=== PATIENT | female | born 1950 | race Caucasian/White ===

== ENCOUNTER 2024-10-22 19:52 | Observation (INO) | payer MEDICARE, MEDICAID, SELFPAY ==
[2024-10-22] VITALS (7 sets, daily range): BP systolic 116–146; BP diastolic 65–91; PULSE 92–116; RESP 12–26; TEMP 36.4–37; O2SAT 95–97; BMI 29.0
--- NOTE | 2024-10-22 20:10 | HMH.EDGENADL ---
Discharge Plan Disposition Patient Disposition: Admitted Condition: Good Clinical Impressions Clinical Impression: Acute UTI, CATHY (acute kidney injury), Episode of unresponsiveness, Heat exposure Discharge ED Provider: Cristine Irene General Adult HPI <MARIA DOLORES Maher - Last Filed: 10/22/24 21:41> General Chief complaint: Weakness Stated complaint: found unconsious, poss heat stroke Time Seen by Provider: 10/22/24 20:10 History of Present Illness HPI narrative: Patient presents after being found down. Patient's last known well was around 130 this afternoon. Patient's son called and could not get her and went in to check on her in person and she was found in the floor of her single wide trailer hot and unconscious. Patient has no recollection of the events. Patient is a somewhat difficult historian but is oriented to person place and time currently. She does not recall any adverse events today can tell me that she went to see the eye doctor tell me that her sides cut her grass and that 1 son brought her lunch but has no recollection of what may have precipitated this event. Currently she denies chest pain shortness of breath fever chills hemoptysis hematochezia melena focal neurologic changes. Related Data Allergies Allergy/AdvReac Type Severity Reaction Status Date / Time No Known Drug Allergies - Allergy Unknown NA Uncoded 04/19/17 14:07 Nkda PFS <MARIA DOLORES Maher - Last Filed: 10/22/24 21:41> [facility] Disclaimer: The information contained in this section may have been updated after the patient was seen, as this information can be updated by other users. Social History (Updated 10/22/24 @ 21:41 by MARIA DOLORES Maher) Smoking Status: Never smoker alcohol intake: never current occupational status: retired Travel in the last 8 weeks?: None Have you lived/traveled outside [place] in past 30 days?: No Contact w/someone who lives/traveled outside US past 30 days?: No Exposure to someone with infectious disease in past 14 days?: No Do you have a fever (greater than 100.4 F or 38 C)?: No Have you tested positive for COVID-19?: No Exposed to someone with COVID-19 in past 14 days?: No Do you have a sore throat?: No Do you have a cough?: No Do you have any weakness?: No Do you have any diarrhea?: No Are you experiencing any unusual bleeding?: No Do you have any muscle aches/pain?: No Do you have any abdominal pain?: No Are you experiencing loss of taste or smell?: No <MARIA DOLORES Maher - Last Filed: 10/22/24 21:41> ROS Obtained: Yes Systems reviewed as appropriate & no additional complaints except as documented Physical Exam <MARIA DOLORES Maher - Last Filed: 10/22/24 21:41> General General appearance: alert and in no apparent distress Respiratory Respiratory exam: Present normal lung sounds bilaterally Cardiovascular Cardiovascular exam: Present regular rate Neurological Exam Neurological exam: Present alert, oriented X3, CN II-XII intact and normal gait; Absent motor sensory deficit Medical Decision Making <MARIA DOLORES Maher - Last Filed: 10/22/24 21:41> Medical Records Medical records reviewed: Yes I reviewed the patient's medical records. Screening: Per USPSTF and CDC recommendations, given the prevalence of disease in our region, it is our hospital?s policy to screen for HIV and viral Hepatitis for all patients aged 18 and over and those with ongoing risk factors. Jones Inquiry Pt receiving controlled substance: No Vital Signs: 10/22/24 20:07 Temperature 98.6 F Temperature Source Oral Pulse Rate [Right Radial] 116 H Respiratory Rate 16 Blood Pressure [Right Arm] 120/79 Blood Pressure Mean [Right Arm] 92 Blood Pressure Position [Right Arm] Supine 02 Sat by Pulse Oximetry 95 Oxygen Delivery Method Room Air Lab Data Lab results reviewed: Yes I reviewed the patient's lab results. Lab Results 10/22/24 20:21: WBC 15.1 H, RBC 4.32, Hgb 13.4, Hct 39.2, MCV 90.7, MCH 31.0, MCHC 34.2, RDW 13.9, Plt Count 364, MPV 9.8, Neut % (Auto) 82.3 H, Lymph % (Auto) 11.2, [place] % (Auto) 5.5, Eos % (Auto) 0.1, Baso % (Auto) 0.5, Neut # (Auto) 12.4 H, Lymph # (Auto) 1.7, [place] # (Auto) 0.8, Eos # (Auto) 0.0, Baso # (Auto) 0.1, PT 11.6, INR 1.05, Sodium 135 L, Potassium 4.1, Chloride 99, Carbon Dioxide 23, Anion Gap 17.1 H, BUN 21 H, Creatinine 1.70 H, Estimated Creat Clear 37, Estimated GFR 29 L, Est GFR ( Amer) 36 L, Glucose 157 H, Calcium 8.9, Magnesium 1.7, Total Bilirubin 0.6, AST 36, ALT 20, Alkaline Phosphatase 132 H, Total Creatine Kinase 82, Troponin I 0.02, Total Protein 7.9, Albumin 4.2, Globulin 3.7 H, Albumin/Globulin Ratio 1.1, TSH 1.40, Thyroxine (T4) 13.8 H 10/22/24 20:29: VBG pH 7.42 H, VBG pCO2 35.8, VBG pO2 55.7 H, VBG HCO3 22.9 L, VBG Total CO2 24.0, VBG O2 Saturation 89.6 H, VBG Base Excess -1.5, VBG Lactic Acid 2.8 H 10/22/24 20:40: Lactate 2.0 10/22/24 21:58: Urine Color Yellow, Urine Appearance Clear, Urine pH 6.0, Ur Specific Bronson 1.010, Urine Protein Negative, Urine Glucose (UA) Negative, Urine Ketones Negative, Urine Blood Negative, Urine Nitrate Negative, Urine Bilirubin Negative, Urine Urobilinogen 0.2, Ur Leukocyte Esterase 2+ A, Urine WBC Tntc, Ur Squamous Epith Cells 5-10, Urine Bacteria 2+ 10/22/24 20:21 10/22/24 20:21 Orders (Tests/Meds): ED MEDICATIONS Generic Name Dose Route Start Last Admin Trade Name Freq PRN Reason Stop Dose Admin Acetaminophen 650 mg 10/22/24 22:43 Acetaminophen 325mg Tab PO 11/21/24 22:42 Q4HP PRN Fever or Mild Pain (1-3) Sodium Chloride 1,000 mls @ 75 mls/hr 10/22/24 22:45 Sod Chlor 0.9% 1000ml Bag IV 11/21/24 22:44 .[id number] DOTTIE Ceftriaxone Sodium 2 gm/ 100 mls @ 200 mls/hr 10/23/24 22:45 Sodium Chloride IV 11/02/24 22:44 Q24H DOTTIE Sodium Chloride 10 ml 10/22/24 22:43 Sodium Chloride 0.9% 10ml Flush Syringe IV 11/21/24 22:42 NEEDED PRN Maintain IV Site Discontinued Medications Generic Name Dose Route Start Last Admin Trade Name Ryan PRN Reason Stop Dose Admin Sodium Chloride 1,000 mls @ 999 mls/hr 10/22/24 20:22 10/22/24 20:36 Sod Chlor 0.9% 1000ml Bag IV 10/22/24 21:22 999 mls/hr .Q1H1M ONE Administration Ceftriaxone Sodium 2 gm/ 100 mls @ 200 mls/hr 10/22/24 22:32 10/22/24 23:03 Sodium Chloride IV 10/22/24 23:01 200 mls/hr ONCE ONE Administration Iopamidol 80 ml 10/22/24 21:18 10/22/24 21:18 Iopamidol-370 (76%);100ml Bottle IV 10/22/24 21:19 80 ml ONCE ONE Administration Sodium Chloride 50 ml 10/22/24 21:18 10/22/24 21:19 0.9 % Sodium Chloride 50 Ml Vial IV 10/22/24 21:19 50 ml ONCE ONE Administration Sodium Chloride 10 ml 10/22/24 21:18 10/22/24 21:19 Sodium Chloride 0.9% 10ml Syr (Rad Only) IV 10/22/24 21:19 10 ml ONCE ONE Administration ORDERS Category Date Time Status CT angio head Stat Cat Scan 10/22/24 20:[address] angio neck Stat Cat Scan 10/22/24 20:[address] cervical spine wo con Stat Cat Scan 10/22/24 20:[address] head/brain wo con Stat Cat Scan 10/22/24 20:26 Completed Chest XR 2 view (NOT portable) [XR chest 2V] Stat Exams 10/22/24 20:23 Completed CBC w/Auto Diff [Complete Blood Count Auto Diff] Stat Lab 10/22/24 20:21 Completed CK [Creatine Kinase] Stat Lab 10/22/24 20:21 Completed CMP [Comprehensive Metabolic Panel] Stat Lab 10/22/24 20:21 Completed Lactic Acid Stat Lab 10/22/24 20:40 Completed Magnesium Stat Lab 10/22/24 20:21 Completed Prothrombin Time INR Stat Lab 10/22/24 20:21 Completed T4 (Thyroxine) Stat Lab 10/22/24 20:21 Completed TSH [Thyroid Stimulating Hormone] Stat Lab 10/22/24 20:21 Completed Trop I [Troponin I] Stat Lab 10/22/24 20:21 Completed Troponin I Q3H Lab 10/22/24 22:50 Received Troponin I Q3H Lab 10/23/24 02:30 Ordered UA [Urinalysis and Microscopic] Stat Lab 10/22/24 21:58 Completed Blood Culture Stat Micro 10/22/24 22:55 Received Urine Culture Stat Micro 10/22/24 21:58 Received VBG [Venous Blood Gas] Stat RT 10/22/24 20:29 Completed HEART Score History (anamnesis): Slightly suspicious ECG: Non-specific disturbance Age: >65 years Risk factors: Atherosclerosis history Troponin: </= normal limit HEART Score: 5 Medical Decision Narrative: In summary patient is a 74-year-old female who presents to the emergency department for evaluation of syncope and collapse. Patient is currently normotensive tachycardic with sinus tachycardia the bedside monitor rate of 120 upon arrival, and afebrile. Physical exam is remarkable for [place] Coma Score 15 patient is awake alert and oriented currently to place in place and circumstance but she is amnestic of events that occurred this afternoon. Patient has a normal neurologic exam with no deficits. Cranials 2 through 12 intact respiratory exam breath sounds clear to go bilaterally to the bases without adventitious sounds. Abdomen soft nontender no rebound or guarding or rigidity. Patient moves all 4 extremities neurovascularly intact in all 4 extremities is amatory in the ER. She is very diaphoretic and hot to touch and her hair is soaked. She does not however have any evidence of contusions abrasions or bony deformities.. Differential diagnosis includes heat exhaustion versus heat stroke versus stroke versus ACS versus intracranial injury versus C-spine injury etc. Initial workup will be conducted with hematologic labs and CT imaging of her head neck urinalysis twelve-lead EKG. Initial interventions include crystalloid bolus for now. Initial workup ordered and pending at the time of handoff Dr. Irene at 2200 hrs. <Cristine Irene, DO - Last Filed: 10/22/24 23:15> Vital Signs: 10/22/24 20:07 Temperature 98.6 F Temperature Source Oral Pulse Rate [Right Radial] 116 H Respiratory Rate 16 Blood Pressure [Right Arm] 120/79 Blood Pressure Mean [Right Arm] 92 Blood Pressure Position [Right Arm] Supine 02 Sat by Pulse Oximetry 95 Oxygen Delivery Method Room Air Lab Data Lab Results 10/22/24 20:21: WBC 15.1 H, RBC 4.32, Hgb 13.4, Hct 39.2, MCV 90.7, MCH 31.0, MCHC 34.2, RDW 13.9, Plt Count 364, MPV 9.8, Neut % (Auto) 82.3 H, Lymph % (Auto) 11.2, [place] % (Auto) 5.5, Eos % (Auto) 0.1, Baso % (Auto) 0.5, Neut # (Auto) 12.4 H, Lymph # (Auto) 1.7, [place] # (Auto) 0.8, Eos # (Auto) 0.0, Baso # (Auto) 0.1, PT 11.6, INR 1.05, Sodium 135 L, Potassium 4.1, Chloride 99, Carbon Dioxide 23, Anion Gap 17.1 H, BUN 21 H, Creatinine 1.70 H, Estimated Creat Clear 37, Estimated GFR 29 L, Est GFR ( Amer) 36 L, Glucose 157 H, Calcium 8.9, Magnesium 1.7, Total Bilirubin 0.6, AST 36, ALT 20, Alkaline Phosphatase 132 H, Total Creatine Kinase 82, Troponin I 0.02, Total Protein 7.9, Albumin 4.2, Globulin 3.7 H, Albumin/Globulin Ratio 1.1, TSH 1.40, Thyroxine (T4) 13.8 H 10/22/24 20:29: VBG pH 7.42 H, VBG pCO2 35.8, VBG pO2 55.7 H, VBG HCO3 22.9 L, VBG Total CO2 24.0, VBG O2 Saturation 89.6 H, VBG Base Excess -1.5, VBG Lactic Acid 2.8 H 10/22/24 20:40: Lactate 2.0 10/22/24 21:58: Urine Color Yellow, Urine Appearance Clear, Urine pH 6.0, Ur Specific [place]onson 1.010, Urine Protein Negative, Urine Glucose (UA) Negative, Urine Ketones Negative, Urine Blood Negative, Urine Nitrate Negative, Urine Bilirubin Negative, Urine Urobilinogen 0.2, Ur Leukocyte Esterase 2+ A, Urine WBC Tntc, Ur Squamous Epith Cells 5-10, Urine Bacteria 2+ Orders (Tests/Meds): ED MEDICATIONS Generic Name Dose Route Start Last Admin Trade Name Frereza PRN Reason Stop Dose Admin Acetaminophen 650 mg 10/22/24 22:43 Acetaminophen 325mg Tab PO 11/21/24 22:42 Q4HP PRN Fever or Mild Pain (1-3) Sodium Chloride 1,000 mls @ 75 mls/hr 10/22/24 22:45 Sod Chlor 0.9% 1000ml Bag IV 11/21/24 22:44 .[id number] DOTTIE Ceftriaxone Sodium 2 gm/ 100 mls @ 200 mls/hr 10/23/24 22:45 Sodium Chloride IV 11/02/24 22:44 Q24H DOTTIE Sodium Chloride 10 ml 10/22/24 22:43 Sodium Chloride 0.9% 10ml Flush Syringe IV 11/21/24 22:42 NEEDED PRN Maintain IV Site Discontinued Medications Generic Name Dose Route Start Last Admin Trade Name Freq PRN Reason Stop Dose Admin Sodium Chloride 1,000 mls @ 999 mls/hr 10/22/24 20:22 10/22/24 20:36 Sod Chlor 0.9% 1000ml Bag IV 10/22/24 21:22 999 mls/hr .Q1H1M ONE Administration Ceftriaxone Sodium 2 gm/ 100 mls @ 200 mls/hr 10/22/24 22:32 10/22/24 23:03 Sodium Chloride IV 10/22/24 23:01 200 mls/hr ONCE ONE Administration Iopamidol 80 ml 10/22/24 21:18 10/22/24 21:18 Iopamidol-370 (76%);100ml Bottle IV 10/22/24 21:19 80 ml ONCE ONE Administration Sodium Chloride 50 ml 10/22/24 21:18 10/22/24 21:19 0.9 % Sodium Chloride 50 Ml Vial IV 10/22/24 21:19 50 ml ONCE ONE Administration Sodium Chloride 10 ml 10/22/24 21:18 10/22/24 21:19 Sodium Chloride 0.9% 10ml Syr (Rad Only) IV 10/22/24 21:19 10 ml ONCE ONE Administration ORDERS Category Date Time Status CT angio head Stat Cat Scan 10/22/24 20:[address] angio neck Stat Cat Scan 10/22/24 20:[address] cervical spine wo con Stat Cat Scan 10/22/24 20:[address] head/brain wo con Stat Cat Scan 10/22/24 20:26 Completed Chest XR 2 view (NOT portable) [XR chest 2V] Stat Exams 10/22/24 20:23 Completed CBC w/Auto Diff [Complete Blood Count Auto Diff] Stat Lab 10/22/24 20:21 Completed CK [Creatine Kinase] Stat Lab 10/22/24 20:21 Completed CMP [Comprehensive Metabolic Panel] Stat Lab 10/22/24 20:21 Completed Lactic Acid Stat Lab 10/22/24 20:40 Completed Magnesium Stat Lab 10/22/24 20:21 Completed Prothrombin Time INR Stat Lab 10/22/24 20:21 Completed T4 (Thyroxine) Stat Lab 10/22/24 20:21 Completed TSH [Thyroid Stimulating Hormone] Stat Lab 10/22/24 20:21 Completed Trop I [Troponin I] Stat Lab 10/22/24 20:21 Completed Troponin I Q3H Lab 10/22/24 22:50 Received Troponin I Q3H Lab 10/23/24 02:30 Ordered UA [Urinalysis and Microscopic] Stat Lab 10/22/24 21:58 Completed Blood Culture Stat Micro 10/22/24 22:55 Received Urine Culture Stat Micro 10/22/24 21:58 Received VBG [Venous Blood Gas] Stat RT 10/22/24 20:29 Completed ECG Data Tracing #1: I reviewed this ECG and interpreted as documented below: Sinus tachycardia with a ventricular to [address] changes concerning for ischemia. Normal intervals ECG initial impression date: 10/22/24 ECG initial impression time: 20:53 HEART Score HEART Score: 5 Medical Decision Narrative: In summary patient is a 74-year-old female who presents to the emergency department for evaluation of syncope and collapse. Patient is currently normotensive tachycardic with sinus tachycardia the bedside monitor rate of 120 upon arrival, and afebrile. Physical exam is remarkable for [place] Coma Score 15 patient is awake alert and oriented currently to place in place and circumstance but she is amnestic of events that occurred this afternoon. Patient has a normal neurologic exam with no deficits. Cranials 2 through 12 intact respiratory exam breath sounds clear to go bilaterally to the bases without adventitious sounds. Abdomen soft nontender no rebound or guarding or rigidity. Patient moves all 4 extremities neurovascularly intact in all 4 extremities is amatory in the ER. She is very diaphoretic and hot to touch and her hair is soaked. She does not however have any evidence of contusions abrasions or bony deformities.. Differential diagnosis includes heat exhaustion versus heat stroke versus stroke versus ACS versus intracranial injury versus C-spine injury etc. Initial workup will be conducted with hematologic labs and CT imaging of her head neck urinalysis twelve-lead EKG. Initial interventions include crystalloid bolus for now. Initial workup ordered and pending at the time of handoff Dr. Irene at 2200 hrs. DO Teto: I was consulted by the ART, and we discussed the complexity of the problems being addressed. I approved the treatment and management plan for this patient's care in the emergency department, thus performing a substantive portion of the medical decision making. On my assessment of the patient, she is alert and oriented x 4 with reassuring vitals on cardiac telemetry. CT scans not concerning for acute stroke, independent interpretation. I also do not see a C-spine fracture. Please radiology read for final interpretation. They noted an age-indeterminate T-spine fractures but the patient does not complain of pain and has no significant tenderness. I do not feel that these are acute. Labs demonstrate elevated creatinine, unsure what the patient's baseline is. She also has a UTI. For this, administered Rocephin. She also got a bolus of IV fluids. Given found down with heat exposure and UTI as well as her advanced age, I feel she would benefit from admission for further monitoring. The patient was admitted in stable condition after an interactive discussion with the hospitalist. Cristine Irene DO Critical Care <MARIA DOLORES Maher - Last Filed: 10/22/24 21:41> Critical Care Time Critical Care Time: Yes Attestation: On 10/22/24, the high probability of a clinically significant, sudden or life threatening deterioration of the following system(s) required my full and direct attention, intervention and personal management. The time I documented below is in addition to time spent performing reported procedures but includes the following listed in this critical care notation. Total Time Total Critical Care Time: 30
--- OUTSIDE RECORDS SUMMARY | 2024-10-22 20:17 | XMS_ITS ---
Author Organization Unknown TREATMENT PLAN Planned [facility] Start Date Provider Encounter for Check-up [id number] [place] [facility]
--- OUTSIDE RECORDS SUMMARY | 2024-10-22 20:17 | XMS_ITS | Encounter Summary ---
Author Organization [facility] Address [facility] [place] [address] Care Team Providers Care Multimedia Instructional Designer Name Role Phone Unavailable Primary Care Provider Unavailabl e Source Comments This information has been disclosed to you from confidential records protectfrom disclosure by state law. You shall make no further disclosure of thisinformation without the specific, written, and informed release of theindividual to whom it pertains, or as otherwise permitted by law. A generalauthorization for the release of medical or other information is not sufficientfor the purposes of the release of HIV test results or diagnoses. [id number] Health Encounter Details Date Type Department Care Team (Late st Contact Info) Description 03/04/2015 Orders Only [facility] Outreach Lab Test Referral Center [address] [place] [phone] Jess Sanders Infection of skin and subcutaneous tissue (Primary Dx) Social History Tobacco Use Types Packs/Day Years Used Date Smoking Tobacco: Never Assessed Comments Unknown Sex and Gender Information Value Date Recorded Sex Assigned at Not on file Legal Sex Female 11:01 PM EST Gender Identity Not on file Sexual Orientation Not on file documented as of this encounter Plan of Treatment Not on file documented as of this encounter Results * Blood culture-Peripheral (03/04/2015 8:25 PM EST) Culture Result No Growth After 5 Days [facility] Blood specimen (specimen) BLOOD SPECIMEN / Unknown 03/04/2015 8:25 PM EST 03/04/2015 11:10 PM EST us Lakhwinder Chong MD MICROBIOLOGY - GENERAL ORDERABL ES Final Result [facility] [address] [place] [address]. [address] * Blood culture-Peripheral (03/04/2015 8:25 PM EST) Culture Result No Growth After 5 Days [facility] Blood specimen (specimen) BLOOD SPECIMEN / Unknown 03/04/2015 8:25 PM EST 03/04/2015 11:10 PM EST us Lakhwinder Chong MD MICROBIOLOGY - GENERAL ORDERABL ES Final Result [facility] [address] * (ABNORMAL) Basic metabolic panel (03/04/2015 8:25 PM EST) Sodium 128(L) 133 - 146 mmol/L 03/05/2015 1:38 AM EST [facility] Potassium 3.9 3.5 - 5.3 mmol/L 03/05/2015 1:[address] [facility] Chloride 97(L) 98 - 110 mmol/L 03/05/2015 1:38 AM EST [facility] CO2 24 21 - 33 mmol/L 03/05/2015 1:38 AM EST [facility] Anion Gap 7 3 - 16 mmol/L 03/05/2015 1:38 AM EST [facility] BUN 12 7 - 25 mg/dL 03/05/2015 1:38 AM EST [facility] Creatinine 0.67 0.60 - 1.30 mg/dL 03/05/2015 1:38 AM EST [facility] Glucose 104(H) 70 - 100 mg/dL 03/05/2015 1:38 AM EST [facility] Calcium 7.6(L) 8.6 - 10.3 mg/dL 03/05/2015 1:38 AM EST [facility] GFR MDRD Af Amer 107 See note. 03/05/20 15 1:38 AM EST [facility] Comment: GFR is estimated using creatinine, age, gender and race. Patient's values should be interpreted as a trend. Below 90 mL/min/1.73m2, the patient may have renal disease. For additional information: www.kidney.org GFR MDRD Non Af Amer 88 See note. 03/05/2015 1:38 AM EST [facility] Comment: GFR is estimated using creatinine, age, gender and race. Patient's values should be interpreted as a trend. Between 30 and 90 mL/min/1.73m2, clinical correlation is needed. For additional information: www.kidney.org Osmolality, Calculated 266(L) 278 - 305 mOsm/kg 03/05/2015 1:38 AM EST [facility] Plasma specimen (specimen) 03/04/2015 8:25 PM EST 03/04/2015 11:10 PM EST Narrative [facility] - 03/05/2015 1:38 AM EST Has the patient fasted?->No INFO NOT GIVEN us Lakhwinder Chong MD LAB BLOOD ORDERABLES Final Resu lt [facility] [address] [place] [address], [facility] * Differential (03/04/2015 8:25 PM EST) Scan Result Performed 03/05/2015 1:[address] [facility] Neutrophils Relative 56.3 40.0 - 80.0 % 03/05/2015 1:[address] [facility] Lymphocytes Relative 32.2 15.0 - 45.0 % 03/05/2015 1:[address] [facility] Monocytes Relative 7.9 0.0 - 12.0 % 03/05/2015 1:[address] [facility] Eosinophils Relative 2.8 0.0 - 8.0 % 03/05/2015 1:[address] [facility] Basophils Relative 0.8 0.0 - 1.0 % 03/05/2015 1:[address] [facility] Neutrophils Absolute 4,898 1,500 - 7,800 /uL 03/05/2015 1:[address] [facility] Lymphocytes Absolute 2,801 850 - 3,900 /uL 03/05/2015 1:58 AM EST [facility] Monocytes Absolute 687 200 - 950 /uL 03/05/2015 1:[address] [facility] Eosinophils Absolute 244 15 - 500 /uL 03/05/2015 1:58 AM EST [facility] Basophils Absolute 70 0 - 200 /uL 03/05/2015 1:58 AM EST [facility] Whole blood specimen (specimen) 03/04/2015 8:25 PM EST 03/04/2015 11:10 PM EST Narrative [facility] - 03/05/2015 1:58 AM EST Peripheral blood smear was scanned per review criteria approved by the laboratory biomedical engineer. RBC morphology appears normal. Lakhwinder Chong MD LAB BLOOD ORDERABLES Final Resu lt [facility] [address] [place], [place] [address] * (ABNORMAL) CBC (03/04/2015 8:25 PM EST) WBC 8.7 3.8 - 10.8 10E3/uL 03/05/2015 1:18 AM EST [facility] RBC 2.98(L) 3.80 - 5.10 10E6/uL 03/05/2015 1:18 AM EST [facility] Hemoglobin 8.4(L) 11.7 - 15.5 g/dL 03/05/2015 1:18 AM EST [facility] Hematocrit 25.7(L) 35.0 - 45.0 % 03/05/2015 1:[address] [facility] MCV 86.1 80.0 - 100.0 fL 03/05/2015 1:18 AM EST [facility] MCH 28.2 27.0 - 33.0 pg 03/05/2015 1:18 AM EST [facility] MCHC 32.7 32.0 - 36.0 g/dL 03/05/2015 1:[address] [facility] RDW 17.4(H) 11.0 - 15.0 % 03/05/2015 1:[address] [facility] Platelets 520(H) 140 - 400 10E3/uL 03/05/2015 1:[address] [facility] MPV 7.1(L) 7.5 - 11.5 fL 03/05/2015 1:18 AM EST [facility] Whole blood specimen (specimen) 03/04/2015 8:25 PM EST 03/04/2015 11:10 PM EST Lakhwinder Chong MD LAB BLOOD ORDERABLES Final Resu lt [facility] [address] [place] [address], [facility] documented in this encounter Visit Diagnoses Diagnosis Infection of skin and subcutaneous tissue- Primary Unspecified local infection of skin and subcutaneous tissue Infection of skin and subcutaneous tissue Unspecified local infection of skin and subcutaneous tissue documented in this encounter
--- OUTSIDE RECORDS SUMMARY | 2024-10-22 20:17 | XMS_ITS ---
Author Organization [employer] Support Name Relationship Address Phone Thomas Zarco Guarantor [address] [place], [place] [id number] Thomas Zarco Next of Kin [address] [place], [place] [id number] Cady Zarco Next of Kin Unknown Toni Zarco Next of Kin Unknown ZarcoShahzad Personal Relationship Unknown Unalea kennedy Haroldo Sergei Personal Relationship Unknown Unavai brent Mental Status Section Date Assessment Total Score Description 02/11/2015 BIMS 15 cognitively int act PHQ-9 05 mild depression Problems Problem # Description Date of onset Resolved Date Code CodeSystem Concern Status 1 PEDICULOSIS DUE TO PEDICULUS HUMANUS CAPITIS 01/24/[address] active 2 MUSCLE WEAKNESS (GENERALIZED) 01/16/[address] active 3 COLOSTOMY STATUS 01/14/[address] active 4 DISRUPTION OF EXTERNAL OPERATION (SURGICAL) WOUND, NOT ELSEWHERE CLASSIFIED, SEQUELA 01/14/[address] active 5 ESSENTIAL (PRIMARY) HYPERTENSION 01/14/[address] active 6 GASTRO-ESOPHAGEAL REFLUX DISEASE WITHOUT ESOPHAGITIS 01/14/[address] active 7 HYPERLIPIDEMIA, UNSPECIFIED 01/14/[address] active 8 MAJOR DEPRESSIVE DISORDER, RECURRENT, UNSPECIFIED 01/14/[address] active 9 OTHER OSTEOPOROSIS WITHOUT CURRENT PATHOLOGICAL FRACTURE 01/14/[address] active 10 TYPE 2 DIABETES MELLITUS WITHOUT COMPLICATIONS 01/14/[address] active 11 UNSTABLE BURST FRACTURE OF UNSPECIFIED LUMBAR VERTEBRA, SEQUELA 01/14/[address] active Reason for Referral No Reasons for Referral Entered Social History Social History Observation Description Start Date End Date Code Code System Current Smoking Status Tobacco smoking consumption unknown 159831879 SNOMED CT Sex Assigned At Female 1950 69580-8 [facility] Gender Identity Vital Signs Code Code System Vitals Name Values and Units Timing Information 06926-8 [facility] Weight Lfjff=611.4 Units=Lbs
--- OUTSIDE RECORDS SUMMARY | 2024-10-22 20:17 | XMS_ITS | Clinical Summary ---
Author Organization [facility] Address [facility] [place] [address] Care Team Providers Care Medical Instructor Name Role Phone Unavailable Primary Care Provider Unavailabl e Source Comments This information has been disclosed to you from confidential records protectedfrom disclosure by state law. You shall make no further disclosure of thisinformation without the specific, written, and informed release of theindividual to whom it pertains, or as otherwise permitted by law. A generalauthorization for the release of medical or other information is not sufficientfor the purposes of therelease of HIV test results or diagnoses. [id number] Social History Tobacco Use Types Packs/Day Years Used Date Smoking Tobacco: Never Assessed Comments Unknown Sex and Gender Information Value Date Recorded Sex Assigned at Not on file Legal Sex Female 11:01 PM EST Gender Identity Not on file Sexual Orientation Not on file Plan of Treatment Not on file
--- OUTSIDE RECORDS SUMMARY | 2024-10-22 20:17 | XMS_ITS | Clinical Summary ---
Author Organization [facility] Shannon T Address [address] [place] [address] Phone Care Team Providers Care Precision Agronomist Name Role Phone Unavailable Primary Care Provider Unavailabl e Allergies No known active allergies Medications * This document contains information received from the source organization and may not represent a complete record from that organization. No known medications Active Problems Problem Noted Date Diagnosed Date Recurrent depressive disorder, current episode m ild 02/15/2015 DOREEN (generalized anxiety disorder) 02/15/2015 Primary insomnia 02/15/2015 Social History Tobacco Use Types Packs/Day Years Used Date Smoking Tobacco: Never Assessed Comments Unknown Sex and Gender Information Value Date Recorded Sex Assigned at Not on file Legal Sex Female 3:58 PM EDT Gender Identity Not on file Sexual Orientation Not on file Plan of Treatment Health Maintenance Due Date Last Done Comments Wellness Exam Medicare 1953 Hepatitis C Screening 02/20/1968 Cologuard 1995 Colon Cancer Screening 1995 Colonoscopy 1995 FIT 1995 Sigmoidoscopy 1995 Virtual Colonography 1995 Zoster (1 of 2) 02/20/2000 DTaP/TDaP/Td (1 - Tdap) 01/12/2002 01/11/2002 Bone Density Screening 2015 Pneumococcal Vaccine 50+ (3 of 3 - PCV20 or PCV21) 01/27/2022 01/27/2017, 01/14/2015, 01/25/2014, Additional history exists Breast Cancer Screening 09/05/2023 09/04/2021, 10/02 COVID-19 Vaccine ( season) 2024 08/26/2021, 03/11/2021, 07/24/2020, Additional history exists Influenza Vaccine (Season Ended) 2024 01/26/2021, 02/26/2020, 02/02/2019, Additional history exists Hepatitis B Vaccine Aged Out No longe r eligible based on patient's age to complete this topic Meningococcal B Vaccine Aged Out No l onger eligible based on patient's age to complete this topic Procedures Procedure Name Priority Date/Time Associated Diagnosis Comments MM MAMMO DIGITAL GUY SCREEN BILAT Routine 09/04/2021 10:30 AM EDT Encounter for screening mammogram for malignant neoplasm of breast from Last 3 Months or Most Recently Relevant to Health Maintenance Results * MM MAMMO DIGITAL GUY SCREEN BILAT (09/04/2021 10:30 AM EDT) Anatomical Region Laterality Modality Breast Bilateral Mammography 09/09/2021 2:53 PM EDT Impressions 09/09/2021 2:53 PM EDT Negative ([id number]-3) ~ RECOMMENDATION: Routine screening mammogram in 1 year. ~ DISCLAIMER * Any patient with a palpable abnormality, unexplained by breast imaging, should be managed on clinical basis by the attending physician. * Breast imaging has a false negative rate of 15%. * The patient was notified by mail of the results of this examination. *The patient's information was entered into a reminder system with a target due date for the next mammogram, in accordance with the [employer] and the Society of Breast Imaging recommendations. Narrative 09/09/2021 2:53 PM EDT Procedure:MM MAMMO DIGITAL GUY SCREEN BILAT ~ Reason for exam: screening, asymptomatic. Z12.31-Encounter for screening mammogram for malignant neoplasm of oohfmz-NPR-32-CM ~ MM MAMMO DIGITAL GUY SCREEN BILAT Bilateral CC and MLO view(s) were taken. There are scattered fibroglandular densities. Prior study comparison: Compared with prior studies the most recent being outside images from September, No mammographic evidence of malignancy. ~ Procedure Note Minnie Mendoza MD - 09/09/2021 Procedure:MM MAMMO DIGITAL GUY SCREEN BILAT ~ Reason for exam: screening, asymptomatic. Z12.31-Encounter for screening mammogram for malignant neoplasm of sxyuqu-YSJ-90-CM ~ MM MAMMO DIGITAL GUY SCREEN BILAT Bilateral CC and MLO view(s) were taken. There are scattered fibroglandular densities. Prior study comparison: Compared with prior studies the most recentbeing outside images from September, No mammographic evidence of malignancy. ~ IMPRESSION: Negative ([id number]-3) ~ RECOMMENDATION: Routine screening mammogram in 1 year. ~ DISCLAIMER * Any patient with a palpable abnormality, unexplained by breast imaging, should be managed on clinical basis by the attending physician. * Breast imaging has a false negative rate of 15%. * The patient was notified by mail of the results of this examination. *The patient's information was entered into a reminder system with atarget due date for the next mammogram, in accordance with the [employer] and the Society of Breast Imaging recommendations. Matteo Guzman DO IMG MAMMOGRAPHY ORDERABL ES Final Result from Last 3 Months or Most Recently Relevant to Health Maintenance Insurance [employer] [facility] [id number] [facility]
--- NOTE | 2024-10-22 20:22 | CT_ITS ---
PROCEDURE INFORMATION: Exam: CTA Head With Contrast, Arteriography Exam date and time: 10/22/2024 9:09 PM Age: 74 years old Clinical indication: Syncope and collapse TECHNIQUE: Imaging protocol: Computed tomographic angiography of the head with contrast. Exam focused on the arteries. 3D rendering (Not supervised by radiologist): MIP and/or 3D reconstructed images were created by the technologist. Radiation optimization: All CT scans at this facility use at least one of these dose optimization techniques: automated exposure control; mA and/or kV adjustment per patient size (includes targeted exams where dose is matched to clinical indication); or iterative reconstruction. Contrast material: ISO 370; Contrast volume: 80 ml; Contrast route: INTRAVENOUS (IV); COMPARISON: CT HEAD/BRAIN WO CON 10/22/2024 9:05 PM FINDINGS: ANTERIOR CIRCULATION: Right internal carotid artery: Intracranial segment is patent with no significant stenosis. No aneurysm. Right middle cerebral artery: No occlusion or significant stenosis. No aneurysm. Right anterior cerebral artery: No occlusion or significant stenosis. No aneurysm. Left internal carotid artery: Intracranial segment is patent with no significant stenosis. No aneurysm. Left middle cerebral artery: No occlusion or significant stenosis. No aneurysm. Left anterior cerebral artery: No occlusion or significant stenosis. No aneurysm. Hypoplastic A1 segment. POSTERIOR CIRCULATION: Right vertebral artery: No occlusion or significant stenosis. No aneurysm. Left vertebral artery: No occlusion or significant stenosis. No aneurysm. Basilar artery: No occlusion or significant stenosis. No aneurysm. Right posterior cerebral artery: No occlusion or significant stenosis. No aneurysm. Left posterior cerebral artery: No occlusion or significant stenosis. No aneurysm. Brain: No definite mass, mass effect, or midline shift. Cerebral ventricles: No ventriculomegaly. Bones/joints: Unremarkable. No acute fracture. Soft tissues: Unremarkable. IMPRESSION: No large vessel stenosis or occlusion.
--- NOTE | 2024-10-22 20:22 | CT_ITS ---
PROCEDURE INFORMATION: Exam: CTA Neck With Contrast Exam date and time: 10/22/2024 9:09 PM Age: 74 years old Clinical indication: Syncope and collapse TECHNIQUE: Imaging protocol: Computed tomographic angiography of the neck with contrast. Exam focused on the cervical segments of the vasculature. 3D rendering (Not supervised by radiologist): MIP and/or 3D reconstructed images were created by the technologist. Radiation optimization: All CT scans at this facility use at least one of these dose optimization techniques: automated exposure control; mA and/or kV adjustment per patient size (includes targeted exams where dose is matched to clinical indication); or iterative reconstruction. Contrast material: ISO 370; Contrast volume: 80 ml; Contrast route: INTRAVENOUS (IV); COMPARISON: CT CERVICAL SPINE WO CON 10/22/2024 9:07 PM FINDINGS: Right common carotid artery: No stenosis. No dissection or occlusion. Right internal carotid artery: No stenosis of the extracranial segment. No dissection or occlusion. Minimal calcific disease at the origin. Right external carotid artery: No occlusion or stenosis of the origin. Left common carotid artery: No stenosis. No dissection or occlusion. Left internal carotid artery: No stenosis of the extracranial segment. No dissection or occlusion. Minimal calcific disease at the origin. Left external carotid artery: No occlusion or stenosis of the origin. Right vertebral artery: No stenosis. No dissection or occlusion. Left vertebral artery: No stenosis. No dissection or occlusion. Soft tissues: Normal. No significant soft tissue swelling. Bones/joints: No acute fracture. Diffuse moderate to severe degenerative changes of the cervical spine. Moderate wedge compression deformity of T5 which is age indeterminate. IMPRESSION: No stenosis or occlusion. Moderate age-indeterminate T5 wedge compression deformity. REFERENCES: NASCET CRITERIA. The degree of stenosis in the cervical segment of the internal carotid artery is based on NASCET criteria. Normal is no stenosis. Mild is less than 50% stenosis. Moderate is 50-69% stenosis. Severe is 70% to 99% stenosis. Total occlusion is no detectable patent lumen.
--- NOTE | 2024-10-22 20:23 | XR_ITS ---
PROCEDURE INFORMATION: Exam: XR Chest Exam date and time: 10/22/2024 8:49 PM Age: 74 years old Clinical indication: Other: Syncope and collapse TECHNIQUE: Imaging protocol: Radiologic exam of the chest. Views: 2 views. COMPARISON: No relevant prior studies available. FINDINGS: Lungs: Unremarkable. No consolidation. Pleural spaces: Unremarkable. No pleural effusion. No pneumothorax. Heart/Mediastinum: Unremarkable. No cardiomegaly. Vasculature: The thoracic aorta is ectatic. Bones/joints: Moderate wedge compression deformities of T5 and L2. Moderate degenerative changes of the thoracic spine. IMPRESSION: Age-indeterminate moderate compression deformities of T5 and L2.
--- NOTE | 2024-10-22 20:26 | CT_ITS ---
PROCEDURE INFORMATION: Exam: CT Head Without Contrast Exam date and time: 10/22/2024 9:05 PM Age: 74 years old Clinical indication: Altered mental status/memory loss; Additional info: AMS stroke pederson TECHNIQUE: Imaging protocol: Computed tomography of the head without contrast. Radiation optimization: All CT scans at this facility use at least one of these dose optimization techniques: automated exposure control; mA and/or kV adjustment per patient size (includes targeted exams where dose is matched to clinical indication); or iterative reconstruction. COMPARISON: CT HEAD/BRAIN WO CON 10/22/2024 9:05 PM FINDINGS: Brain: There is age related atrophy. No hemorrhage. There is prominent periventricular white matter hypodensity consistent with chronic small vessel disease. No mass effect. Focal prominent encephalomalacia medial left occipital lobe consistent with old infarct. Cerebral ventricles: Ventricular enlargement secondary to parenchymal atrophy. Paranasal sinuses: Visualized sinuses are unremarkable. No fluid levels. Mastoid air cells: Visualized mastoid air cells are well aerated. Orbital cavities: The orbital contents are symmetric and normal. Bones: Unremarkable. No acute fracture. Soft tissues: Unremarkable. There has been bilateral lens extraction. IMPRESSION: No acute intracranial abnormality.
--- NOTE | 2024-10-22 20:27 | CT_ITS ---
PROCEDURE INFORMATION: Exam: CT Cervical Spine Without Contrast Exam date and time: 10/22/2024 9:07 PM Age: 74 years old Clinical indication: Injury or trauma; Other: Found down, age>65 TECHNIQUE: Imaging protocol: Computed tomography of the cervical spine without contrast. Radiation optimization: All CT scans at this facility use at least one of these dose optimization techniques: automated exposure control; mA and/or kV adjustment per patient size (includes targeted exams where dose is matched to clinical indication); or iterative reconstruction. COMPARISON: CT CERVICAL SPINE WO CON 10/22/2024 9:07 PM FINDINGS: Bones: There is subtle superior endplate compression deformity of T1 which is age indeterminate. There is severe degenerative disc disease from C3 through C7. Diffuse moderate facet arthropathy is noted. Normal alignment. No significant disc bulge or herniation. No severe spinal canal stenosis. No severe neural foraminal narrowing. Lungs: Lung apices are normal. Soft tissues: Unremarkable. IMPRESSION: Age-indeterminate subtle superior endplate compression deformity of T1. Further evaluation with MR imaging could be performed to determine the age of the abnormality as clinically indicated.
[2024-10-22] MEDS: 0.9 % SODIUM CHLORIDE 1000ML 1,000 ML 999 ML IV (20:36)
[2024-10-22 20:39] LABS: Basophils # 0.1 K/mm3 (0-0.2); Basophils % 0.5 % (0.1-2.0); Eosinophils % 0.1 % (0.1-12.0); Hematocrit 39.2 % (37.0-47.0); Hemoglobin 13.4 g/dL (12.2-16.2); Immature Granulocytes # 0.06 10^3uL; Immature Granulocytes % 0.4 %; Lymphocytes # 1.7 K/mm3 (0.7-4.5); Lymphocytes % 11.2 % (10-50); Mean Corpuscular HGB Conc 34.2 g/dL (31.8-35.4); Mean Corpuscular Volume 90.7 fl (81-99); Mean Platelet Volume 9.8 fl (7.4-10.4); Monocytes # 0.8 K/mm3 (0.1-1.0); Monocytes % 5.5 % (1.7-9.3); Neutrophils # 12.4 K/mm3 (1.8-7.8); Neutrophils % 82.3 % (37.0-80.0); Nucleated Red Blood Cells # 0 10^3/uL; Nucleated Red Blood Cells % 0 %; Platelet Count 364 K/mm3 (142-424); Red Blood Count 4.32 M/mm3 (4.20-5.40); Red Cell Distribution Width 13.9 % (11.5-17.5); White Blood Count 15.1 K/mm3 (4.8-10.8)
[2024-10-22 20:41] LABS: VBG Base Excess -1.5 mmol/L (-2.4-2.3); VBG HCO3 22.9 mmol/L (23-30); VBG Oxygen Saturation 89.6 % (50-70); VBG PCO2 35.8 mmol/L (35-51); VBG PH 7.42 mmol/L (7.31-7.41); VBG PO2 55.7 mmol/L (28-40)
[2024-10-22 20:42] LABS: Lactate Venous 2.8 mmol/L (0.4-2.0)
[2024-10-22 20:43] LABS: Albumin Level 4.2 g/dl (3.5-5.0); Chloride 99 mmol/L (98-107); Potassium 4.1 mmoL/L (3.5-5.1); Sodium 135 mmol/L (136-145)
[2024-10-22 20:46] LABS: Alanine Aminotransferase 20 U/L (12-78); Albumin/Globulin Ratio 1.1 (1.1-1.8); Alkaline Phosphatase 132 U/L (38-126); Anion Gap 17.1 mEq/L (5-15); Aspartate Amino Transferase 36 U/L (14-36); Bilirubin,Total 0.6 mg/dl (0.2-1.3); Blood Urea Nitrogen 21 mg/dl (7-17); Calcium 8.9 mg/dl (8.4-10.2); Carbon Dioxide 23 mmol/L (22.0-30.0); Creatine Kinase 82 U/L (30-135); Creatinine Clearance Estimated 37 mL/min (50-200); Estimated Glomerular Filt Rate 29 ml/min (>60); GFR (African American) 36 ML/MIN (>60); Globulin 3.7 g/dL (1.3-3.2); Glucose 157 mg/dl (74-100); Total Protein,Serum 7.9 g/dl (6.3-8.2)
[2024-10-22 20:47] LABS: INR 1.05 (0.9-1.1); Magnesium 1.7 mg/dl (1.6-2.3); Prothrombin Time 11.6 seconds (10.1-12.5)
--- NOTE | 2024-10-22 20:50 | ECG_ITS ---
APPROVED REPORT Exam: Resting ECG HR:101 bpm ECG Measurements Heart Rate 101 AXES OK 200 P 14 QRSd 88 QRS -23 QT 355 T 21 QTc 413 Conclusion SINUS TACHYCARDIA MINIMAL VOLTAGE CRITERIA FOR LVH, CONSIDER NORMAL VARIANT [MEETS CRITERIA IN ONE OF: R(aVL), S(V1), R(V5), R(V5/V6)+S(V1)] ANTEROLATERAL MYOCARDIAL INFARCTION , PROBABLY OLD [40+ ms Q WAVE IN I/aVL/V3-V6] ABNORMAL ECG UNCONFIRMED REPORT Electronically signed by : YAEL JENSEN, 10/23/2024 06:35:06
[2024-10-22 20:59] LABS: Troponin I 0.02 ng/ml (0.00-0.034)
[2024-10-22 21:03] LABS: T4 (Thyroxine) 13.8 ug/dl (5.53-11.0)
[2024-10-22] MEDS: IOPAMIDOL-370 (76%);100ML BOTTLE 80 ML IV (21:18)
[2024-10-22] MEDS: 0.9 % SODIUM CHLORIDE 50 ML VIAL IV (21:19)
[2024-10-22] MEDS: SODIUM CHLORIDE 0.9% 10ML SYR (RAD ONLY) 10 ML IV (21:19)
[2024-10-22 22:07] LABS: Microscopic, Urine URINE MICROSCOPIC (MICROSCOPIC)
[2024-10-22 22:10] LABS: Appearance,Urine CLEAR (Clear); Bilirubin,Urine Negative (Negative); Blood, Urine Negative (Negative); Color,Urine YELLOW (Yellow); Glucose,Urine (UA) Negative (Negative); Ketones,Urine Negative (Negative); Leukocyte Esterase,Urine 2+ (Negative); Nitrate,Urine Negative (Negative); Protein,Urine Negative (Negative); Urobilinogen,Urine 0.2 EU/dl (0.2)
[2024-10-22 22:27] LABS: Bacteria,Urine 2+ /lpf; WBC,Urine TNTC #/hpf (0-3)
[2024-10-22] MEDS: CEFTRIAXONE SODIUM 2 GM in 0.9 % SODIUM CHLORIDE 100 ML IV (23:03)
--- NOTE | 2024-10-22 23:04 | PC.NURSE ---
Rocephin initially discontinued due to issue with duplicate order. order was brought back because next order for Rocephin is 10/23.
[2024-10-22 23:35] LABS: Troponin I 0.02 ng/ml (0.00-0.034)
[2024-10-22] MEDS: 0.9 % SODIUM CHLORIDE 1000ML 1,000 ML 75 ML IV (23:53)
--- NOTE | 2024-10-22 23:56 | P.HP_ITS ---
<Statement entered by Alexis Georges MD - 10/24/24 22:22> Evaluated by the patient and agree with plan of care as outlined by the METAL FIN[employer] INSPECTOR. History of Present Illness *Admission Date: 10/22/24 *Reason for visit:: Heat exposure *History of present illness: This is a 74-year-old female with past medical history of heart failure, hypertension, chronic pain who presents emergency department today after being found unresponsive at home. Son at bedside provides collateral and states that he brought her lunch this afternoon for which she did not eat very much. He states that she sits outside a lot under the shade tree and has been doing that all day today. When he left this afternoon she was inside the house. He called her later to check on her and she did not answer the phone. He went into the home to check on her and was found unresponsive laying in her floor with the air conditioner off. He reports that she is cold natured and intermittently will turn the air off in her home. He brought her in by POV and he reports approximately 20 minutes into the car ride with air conditioner she was back to her baseline. Upon arrival to the emergency department she was awake alert and oriented. Normotensive. Normothermic. Workup revealed urinary tract infection with leuk esterase and bacteria. She also noted to have an elevated creatinine of 1.7. Given her heat exposure CATHY and urinary tract infection is felt she would benefit from hospitalization. She is admitted to the hospital service at this time [facility] Disclaimer: The information contained in this section may have been updated after the patient was seen, as this information can be updated by other users. Social History (Updated 10/22/24 @ 21:41 by MARIA DOLORES Maher) Smoking Status: Never smoker alcohol intake: never current occupational status: retired Travel in the last 8 weeks?: None Have you lived/traveled outside [place] in past 30 days?: No Contact w/someone who lives/traveled outside US past 30 days?: No Exposure to someone with infectious disease in past 14 days?: No Do you have a fever (greater than 100.4 F or 38 C)?: No Have you tested positive for COVID-19?: No Exposed to someone with COVID-19 in past 14 days?: No Do you have a sore throat?: No Do you have a cough?: No Do you have any weakness?: No Do you have any diarrhea?: No Are you experiencing any unusual bleeding?: No Do you have any muscle aches/pain?: No Do you have any abdominal pain?: No Are you experiencing loss of taste or smell?: No Review of Systems Review of Systems Review of systems:: pertinent systems reviewed and negative unless documented below Review of systems (narrative): Negative except for HPI. Meds Home Medications and Allergies New Prescriptions to Start Prescriptions: Allergies Allergy/AdvReac Type Severity Reaction Status Date / Time No Known Drug Allergies - Allergy Unknown NA Uncoded 04/19/17 14:07 Nkda Exam Data for Last 24 hours Vital signs and Labs for Last 24 Hours: Temp Pulse Resp BP Pulse Ox O2 Del Method 97.6 F 96 H 16 120/74 96 Room Air 10/22/24 23:20 10/22/24 23:20 10/22/24 23:20 10/22/24 23:20 10/22/24 23:15 10/22/24 23:20 Laboratory Results - last 24 hr 10/22/24 20:21: WBC 15.1 H, RBC 4.32, Hgb 13.4, Hct 39.2, MCV 90.7, MCH 31.0, MCHC 34.2, RDW 13.9, Plt Count 364, MPV 9.8, Neut % (Auto) 82.3 H, Lymph % (Auto) 11.2, [place] % (Auto) 5.5, Eos % (Auto) 0.1, Baso % (Auto) 0.5, Neut # (A uto) 12.4 H, Lymph # (Auto) 1.7, [place] # (Auto) 0.8, Eos # (Auto) 0.0, Baso # (Auto) 0.1, PT 11.6, INR 1.05, Sodium 135 L, Potassium 4.1, Chloride 99, Carbon Dioxide 23, Anion Gap 17.1 H, BUN 21 H, Creatinine 1.70 H, Estimated Creat Clear 37, Estimated GFR 29 L, Est GFR ( Amer) 36 L, Glucose 157 H, Calcium 8.9, Magnesium 1.7, Total Bilirubin 0.6, AST 36, ALT 20, Alkaline Phosphatase 132 H, Total Creatine Kinase 82, Troponin I 0.02, Total Protein 7.9, Albumin 4.2, Globulin 3.7 H, Albumin/Globulin Ratio 1.1, TSH 1.40, Thyroxine (T4) 13.8 H 10/22/24 20:29: VBG pH 7.42 H, VBG pCO2 35.8, VBG pO2 55.7 H, VBG HCO3 22.9 L, VBG Total CO2 24.0, VBG O2 Saturation 89.6 H, VBG Base Excess -1.5, VBG Lactic Acid 2.8 H 10/22/24 20:40: Lactate 2.0 10/22/24 21:58: Urine Color Yellow, Urine Appearance Clear, Urine pH 6.0, Ur Specific [place] 1.010, Urine Protein Negative, Urine Glucose (UA) Negative, Urine Ketones Negative, Urine Blood Negative, Urine Nitrate Negative, Urine Bilirubin Negative, Urine Urobilinogen 0.2, Ur Leukocyte Esterase 2+ A, Urine WBC Tntc, Ur Squamous Epith Cells 5-10, Urine Bacteria 2+ 10/22/24 22:50: Troponin I 0.02 I & O for Last 24 hours: Intake & Output 10/19/24 10/20/24 10/21/24 10/22/24 23:59 23:59 23:59 23:59 Weight 81.647 kg Constitutional Constitutional: no acute distress *Routine HEENT Exam Head: Present normocephalic Eye: Present EOMI and PERRL ENT: Present mucous membranes moist *Routine Neck Exam Neck: Present supple; Absent lymphadenopathy *Routine Respiratory Exam Respiratory: Present CTA bilaterally *Routine Cardiovascular Exam Cardiovascular: Present RRR *Routine Abdominal Exam Abdominal: Present soft and normoactive bowel sounds; Absent tenderness *Routine Rectal Exam Rectal:: deferred *Routine Genitalia Exam Genitalia:: deferred *Routine Extremities Exam Extremities: Absent cyanosis, clubbing or edema *Routine Skin Exam Skin: Present warm; Absent rash *Routine Neurological Exam Neurological: Present alert and oriented X3 Assessment and Plan *Assessment and plan (1) Heat exposure: Status: Acute Category: Medical Code(s): T67.9XXA - Effect of heat and light, unspecified, initial encounter (2) CATHY (acute kidney injury): Status: Acute Category: Medical Code(s): N17.9 - Acute kidney failure, unspecified (3) Acute UTI: Status: Acute Category: Medical Code(s): N39.0 - Urinary tract infection, site not specified Plan #Heat exposure #Transient alteration in awareness Found down by family at home after air conditioner being turned off in the home. Upon arrival to the emergency department awake alert and oriented. States that she just got too hot. CK negative. Monitor neurostatus #CATHY Creatinine 1.7. No baseline for comparison. Patient does take Lasix and spironolactone at home likely secondary to some element of heart failure Hydrate judiciously given that she is on diuretics at baseline Monitor respiratory status #Acute cystitis Urine with leuk esterase, TNTC white cells +2 bacteria Follow-up urine culture Continue Rocephin #Heart failure, unspecified Patient on spironolactone and Lasix at home with likely heart failure diagnosis No prior history for confirmation. Patient is unaware of why she is exactly on diuretics. #Hypertension Patient appears to be on Cardizem with no AC usage. Patient does not have knowledge of atrial fibrillation so medication used for hypertension Home medications will need to be completely reconciled for restart.
[2024-10-23] VITALS: BP 126/69; PULSE 77; PULSE 90; RESP 16; TEMP 36.7; O2SAT 98
--- NOTE | 2024-10-23 00:16 | PC.NURSE ---
med rec done per patient confirmation. patient took a bath upon arrival. IS education provided, patient verbalized understanding. SCDs in place. PW on to monitor I&O tonight, will ambulated in the morning. colostomy bag and wafer changed. NS @ 75ml/hr. clothing sent home with sons.
[2024-10-23 00:43] LABS: Reflex Lactic Add Lactic Reflex
[2024-10-23 01:56] LABS: Lactic Acid Follow Up (RFLX 1) 1.7 mmol/L (0.7-2.1)
[2024-10-23 02:47] LABS: Troponin I 0.02 ng/ml (0.00-0.034)
[2024-10-23 04:00] VITALS: BP 128/69; PULSE 75; PULSE 77; RESP 16; TEMP 36.6; O2SAT 100; BMI 29.3
[2024-10-23 06:30] LABS: Basophils # 0.1 K/mm3 (0-0.2); Basophils % 0.6 % (0.1-2.0); Eosinophils # 0.2 Kmm3 (0.0-0.4); Eosinophils % 2.2 % (0.1-12.0); Hematocrit 35.4 % (37.0-47.0); Immature Granulocytes # 0.03 10^3uL; Immature Granulocytes % 0.3 %; Lymphocytes # 3.1 K/mm3 (0.7-4.5); Lymphocytes % 31.6 % (10-50); Mean Corpuscular HGB Conc 33.9 g/dL (31.8-35.4); Mean Corpuscular Volume 91.5 fl (81-99); Mean Platelet Volume 9.9 fl (7.4-10.4); Monocytes % 9.7 % (1.7-9.3); Neutrophils # 5.5 K/mm3 (1.8-7.8); Neutrophils % 55.6 % (37.0-80.0); Nucleated Red Blood Cells # 0 10^3/uL; Nucleated Red Blood Cells % 0 %; Platelet Count 291 K/mm3 (142-424); Red Blood Count 3.87 M/mm3 (4.20-5.40); Red Cell Distribution Width-SD 47.6 fL; White Blood Count 9.9 K/mm3 (4.8-10.8)
[2024-10-23 06:33] LABS: Hemoglobin 12.2 g/dL (12.2-16.2)
--- NOTE | 2024-10-23 06:39 | PC.NURSE ---
0200 20g in LAC infiltrated - new USG IV placed 20g RAC 0600 USG IV infiltrated in RAC, hospitalist notified - very difficult stick - NS @ 75ml/hr on hold, no line at this time pending AM labs/renal fn per hospitalist.
[2024-10-23 06:50] LABS: Chloride 100 mmol/L (98-107); Potassium 3.6 mmoL/L (3.5-5.1); Sodium 133 mmol/L (136-145)
[2024-10-23 06:53] LABS: Anion Gap 14.6 mEq/L (5-15); Blood Urea Nitrogen 17 mg/dl (7-17); Carbon Dioxide 22 mmol/L (22.0-30.0); Creatinine Clearance Estimated 58 mL/min (50-200); Estimated Glomerular Filt Rate 49 ml/min (>60); GFR (African American) 59 ML/MIN (>60); Glucose 104 mg/dl (74-100)
[2024-10-23 06:54] LABS: Calcium 8.1 mg/dl (8.4-10.2)
--- NOTE | 2024-10-23 07:39 | HMH.PHAINT1 ---
Pharmacy Intervention Comments: MEDICATION RECONCILIATION COMPLETED ON PATIENT USING EXTERNAL FILL HISTORY FROM PHARMACY. -AC GILBERT, NISHD
[2024-10-23 08:00] VITALS: BP 112/60; PULSE 80; PULSE 83; RESP 18; TEMP 36.8; O2SAT 96
--- NOTE | 2024-10-23 10:37 | EXP.DC.SUM ---
General Admission date:: 10/22/24 HPI HPI HPI: This is a 74-year-old female with past medical history of heart failure, hypertension, chronic pain who presents emergency department today after being found unresponsive at home. Son at bedside provides collateral and states that he brought her lunch this afternoon for which she did not eat very much. He states that she sits outside a lot under the shade tree and has been doing that all day today. When he left this afternoon she was inside the house. He called her later to check on her and she did not answer the phone. He went into the home to check on her and was found unresponsive laying in her floor with the air conditioner off. He reports that she is cold natured and intermittently will turn the air off in her home. He brought her in by POV and he reports approximately 20 minutes into the car ride with air conditioner she was back to her baseline. Upon arrival to the emergency department she was awake alert and oriented. Normotensive. Normothermic. Workup revealed urinary tract infection with leuk esterase and bacteria. She also noted to have an elevated creatinine of 1.7. Given her heat exposure CATHY and urinary tract infection is felt she would benefit from hospitalization. She is admitted to the hospital service at this time Hospital Course Hospital Course Hospital Course: Inna Zarco is a 74-year-old female who was found by son unresponsive at home after spending much of the day outside in the hot weather and was bedded for heat exhaustion, CATHY, UTI. Patient was alert and oriented upon arrival to the ED. #Acute metabolic encephalopathy #Heatstroke #CATHY #UTI ? Found by son unresponsive at home after spending most the day outside in the hot weather. Alert and oriented upon arrival to the ED. Vital signs stable. ? UA grossly abnormal, urine culture pending. ? Creatinine improved from 1.7-1.1 with fluid resuscitation. ? Discharged with cefdinir for 5 more days. Advised to stay hydrated and reduce sun exposure. #Heart failure, unspecified ? Patient on spironolactone and Lasix at home with likely heart failure diagnosis ? No prior history for confirmation. Patient is unaware of why she is exactly on diuretics. ? Advised to follow-up PCP within 1 week for further evaluation and management. Exam Data for Last 24 hours Vital signs and Labs for Last 24 Hours: Temp Pulse Resp BP Pulse Ox O2 Del Method 98.2 F 83 18 112/60 96 Room Air 10/23/24 08:00 10/23/24 08:00 10/23/24 08:00 10/23/24 08:00 10/23/24 08:00 10/23/24 08:00 Laboratory Results - last 24 hr 10/22/24 20:21: WBC 15.1 H, RBC 4.32, Hgb 13.4, Hct 39.2, MCV 90.7, MCH 31.0, MCHC 34.2, RDW 13.9, Plt Count 364, MPV 9.8, Neut % (Auto) 82.3 H, Lymph % (Auto) 11.2, [place] % (Auto) 5.5, Eos % (Auto) 0.1, Baso % (Auto) 0.5, Neut # (Auto) 12.4 H, Lymph # (Auto) 1.7, [place] # (Auto) 0.8, Eos # (Auto) 0.0, Baso # (Auto) 0.1, PT 11.6, INR 1.05, Sodium 135 L, Potassium 4.1, Chloride 99, Carbon Dioxide 23, Anion Gap 17.1 H, BUN 21 H, Creatinine 1.70 H, Estimated Creat Clear 37, Estimated GFR 29 L, Est GFR ( Amer) 36 L, Glucose 157 H, Calcium 8.9, Magnesium 1.7, Total Bilirubin 0.6, AST 36, ALT 20, Alkaline Phosphatase 132 H, Total Creatine Kinase 82, Troponin I 0.02, Total Protein 7.9, Albumin 4.2, Globulin 3.7 H, Albumin/Globulin Ratio 1.1, TSH 1.40, Thyroxine (T4) 13.8 H 10/22/24 20:29: VBG pH 7.42 H, VBG pCO2 35.8, VBG pO2 55.7 H, VBG HCO3 22.9 L, VBG Total CO2 24.0, VBG O2 Saturation 89.6 H, VBG Base Excess -1.5, VBG Lactic Acid 2.8 H 10/22/24 20:40: Lactate 2.0 10/22/24 21:58: Urine Color Yellow, Urine Appearance Clear, Urine pH 6.0, Ur Specific [place] 1.010, Urine Protein Negative, Urine Glucose (UA) Negative, Urine Ketones Negative, Urine Blood Negative, Urine Nitrate Negative, Urine Bilirubin Negative, Urine Urobilinogen 0.2, Ur Leukocyte Esterase 2+ A, Urine WBC Tntc, Ur Squamous Epith Cells 5-10, Urine Bacteria 2+ 10/22/24 22:50: Troponin I 0.02 10/23/24 01:25: Lactate 1.7, Troponin I 0.02 10/23/24 06:04: WBC 9.9 D, RBC 3.87 L, Hgb 12.2, Hct 35.4 L, MCV 91.5, MCH 31.0, MCHC 33.9, RDW 14.0, Plt Count 291, MPV 9.9, Neut % (Auto) 55.6, Lymph % (Auto) 31.6, [place] % (Auto) 9.7 H, Eos % (Auto) 2.2, Baso % (Auto) 0.6, Neut # (Auto) 5.5, Lymph # (Auto) 3.1, [place] # (Auto) 1.0, Eos # (Auto) 0.2, Baso # (Auto) 0.1, Sodium 133 L, Potassium 3.6, Chloride 100, Carbon Dioxide 22, Anion Gap 14.6, BUN 17, Creatinine 1.10 H D, Estimated Creat Clear 58, Estimated GFR 49 L, Est GFR ( Amer) 59 D, Glucose 104 H D, Calcium 8.1 L I & O for Last 24 hours: Intake & Output 10/20/24 10/21/24 10/22/24 10/23/24 23:59 23:59 23:59 23:59 Intake Total 820 / 820 Output Total 800 / 800 Balance Weight 81.647 kg 82.554 kg Constitutional Constitutional: no acute distress *Routine HEENT Exam Head: Present normocephalic Eye: Present EOMI and PERRL ENT: Present mucous membranes moist *Routine Neck Exam Neck: Present supple; Absent lymphadenopathy *Routine Respiratory Exam Respiratory: Present CTA bilaterally *Routine Cardiovascular Exam Cardiovascular: Present RRR *Routine Abdominal Exam Abdominal: Present soft and normoactive bowel sounds; Absent tenderness *Routine Extremities Exam Extremities: Absent cyanosis, clubbing or edema *Routine Skin Exam Skin: Present warm; Absent rash *Routine Neurological Exam Neurological: Present alert and oriented X3 Results Data Completed and Pending Labs on day of discharge: Labs from last 24 hours 10/23/24 10/23/2425 06:04 01:25 22:50 WBC 9.9 D RBC 3.87 L Hgb 12.2 Hct 35.4 L MCV 91.5 MCH 31.0 MCHC 33.9 RDW 14.0 Plt Count 291 MPV 9.9 Neut % (Auto) 55.6 Lymph % (Auto) 31.6 [place] % (Auto) 9.7 H Eos % (Auto) 2.2 Baso % (Auto) 0.6 Neut # (Auto) 5.5 Lymph # (Auto) 3.1 [place] # (Auto) 1.0 Eos # (Auto) 0.2 Baso # (Auto) 0.1 PT INR VBG pH VBG pCO2 VBG pO2 VBG HCO3 VBG Total CO2 VBG O2 Saturation VBG Base Excess VBG Lactic Acid Sodium 133 L Potassium 3.6 Chloride 100 Carbon Dioxide 22 Anion Gap 14.6 BUN 17 Creatinine 1.10 H D Estimated Creat Clear 58 Estimated GFR 49 L Est GFR ( Amer) 59 D Glucose 104 H D Lactate 1.7 Calcium 8.1 L Magnesium Total Bilirubin AST ALT Alkaline Phosphatase Total Creatine Kinase Troponin I 0.02 0.02 Total Protein Albumin Globulin Albumin/Globulin Ratio TSH Thyroxine (T4) Urine Color Urine Appearance Urine pH Ur Specific [place] Urine Protein Urine Glucose (UA) Urine Ketones Urine Blood Urine Nitrate Urine Bilirubin Urine Urobilinogen Ur Leukocyte Esterase Urine WBC Ur Squamous Epith Cells Urine Bacteria 10/22/24 10/22/24 10/22/24 21:58 20:40 20:29 WBC RBC Hgb Hct MCV MCH MCHC RDW Plt Count MPV Neut % (Auto) Lymph % (Auto) [place] % (Auto) Eos % (Auto) Baso % (Auto) Neut # (Auto) Lymph # (Auto) [place] # (Auto) Eos # (Auto) Baso # (Auto) PT INR VBG pH 7.42 H VBG pCO2 35.8 VBG pO2 55.7 H VBG HCO3 22.9 L VBG Total CO2 24.0 VBG O2 Saturation 89.6 H VBG Base Excess -1.5 VBG Lactic Acid 2.8 H Sodium Potassium Chloride Carbon Dioxide Anion Gap BUN Creatinine Estimated Creat Clear Estimated GFR Est GFR ( Amer) Glucose Lactate 2.0 Calcium Magnesium Total Bilirubin AST ALT Alkaline Phosphatase Total Creatine Kinase Troponin I Total Protein Albumin Globulin Albumin/Globulin Ratio TSH Thyroxine (T4) Urine Color Yellow Urine Appearance Clear Urine pH 6.0 Ur Specific [place] 1.010 Urine Protein Negative Urine Glucose (UA) Negative Urine Ketones Negative Urine Blood Negative Urine Nitrate Negative Urine Bilirubin Negative Urine Urobilinogen 0.2 Ur Leukocyte Esterase 2+ A Urine WBC Tntc Ur Squamous Epith Cells 5-10 Urine Bacteria 2+ 10/22/24 20:21 WBC 15.1 H RBC 4.32 Hgb 13.4 Hct 39.2 MCV 90.7 MCH 31.0 MCHC 34.2 RDW 13.9 Plt Count 364 MPV 9.8 Neut % (Auto) 82.3 H Lymph % (Auto) 11.2 [place] % (Auto) 5.5 Eos % (Auto) 0.1 Baso % (Auto) 0.5 Neut # (Auto) 12.4 H Lymph # (Auto) 1.7 [place] # (Auto) 0.8 Eos # (Auto) 0.0 Baso # (Auto) 0.1 PT 11.6 INR 1.05 VBG pH VBG pCO2 VBG pO2 VBG HCO3 VBG Total CO2 VBG O2 Saturation VBG Base Excess VBG Lactic Acid Sodium 135 L Potassium 4.1 Chloride 99 Carbon Dioxide 23 Anion Gap 17.1 H BUN 21 H Creatinine 1.70 H Estimated Creat Clear 37 Estimated GFR 29 L Est GFR ( Amer) 36 L Glucose 157 H Lactate Calcium 8.9 Magnesium 1.7 Total Bilirubin 0.6 AST 36 ALT 20 Alkaline Phosphatase 132 H Total Creatine Kinase 82 Troponin I 0.02 Total Protein 7.9 Albumin 4.2 Globulin 3.7 H Albumin/Globulin Ratio 1.1 TSH 1.40 Thyroxine (T4) 13.8 H Urine Color Urine Appearance Urine pH Ur Specific [place] Urine Protein Urine Glucose (UA) Urine Ketones Urine Blood Urine Nitrate Urine Bilirubin Urine Urobilinogen Ur Leukocyte Esterase Urine WBC Ur Squamous Epith Cells Urine Bacteria DS: Diagnosis Discharge Diagnosis (1) Heat exposure: Status: Acute Code(s): T67.9XXA - Effect of heat and light, unspecified, initial encounter (2) CATHY (acute kidney injury): Status: Acute Code(s): N17.9 - Acute kidney failure, unspecified (3) Acute UTI: Status: Acute Code(s): N39.0 - Urinary tract infection, site not specified Meds Home Medications and Allergies Home Medications ?Medication ?Instructions ?Recorded ?Confirmed ?Type aspirin 81 mg tablet,delayed 81 mg PO DAILY 10/23/24 10/23/24 History release atorvastatin 80 mg tablet 80 mg PO DAILY 10/23/24 10/23/24 History cefdinir 300 mg capsule 300 mg PO BID 5 days #10 caps 10/23/24 Rx clopidogrel 75 mg tablet 75 mg PO DAILY 10/23/24 10/23/24 History cyclobenzaprine 10 mg tablet 10 mg PO TIDP PRN Muscle Spasm 10/23/24 10/23/24 History diltiazem HCl 120 mg capsule,24 120 mg PO DAILY 10/23/24 10/23/24 History hr,extended release famotidine 40 mg tablet 40 mg PO BID 10/23/24 10/23/24 History furosemide 40 mg tablet 40 mg PO DAILY 10/23/24 10/23/24 History gabapentin 300 mg capsule 300 mg PO BID 10/23/24 10/23/24 History gabapentin 600 mg tablet 600 mg PO HS 10/23/24 10/23/24 History hydrocodone 10 mg-acetaminophen 1 tab PO Q6HP PRN Moderate Pain 10/23/24 10/23/24 History 325 mg tablet (Scale Score 5-6) omeprazole 40 mg capsule,delayed 40 mg PO BID 10/23/24 10/23/24 History release potassium chloride 10 mEq 10 meq PO TID 10/23/24 10/23/24 History tablet,extended release(part/cryst) ranolazine 500 mg tablet,extended 500 mg PO BID 10/23/24 10/23/24 History release,12 hr spironolactone 25 mg tablet 25 mg PO DAILY 10/23/24 10/23/24 History New Prescriptions to Start Prescriptions: Alexis Faulkner Allergies Allergy/AdvReac Type Severity Reaction Status Date / Time colchicine AdvReac Other Verified 10/23/24 00:20 rosuvastatin (From Crestor) AdvReac Other Verified 10/23/24 00:20 Discharge Plan Disposition Patient Disposition: Home, Self-Care Condition: Fair Follow up Plan Follow up with: Andreea Oquendo APRN [Referring, Medical] - 10/30/24 9:30 am Prescriptions/Medication Reconciliation: New cefdinir 300 mg capsule 300 mg PO BID 5 Days Qty: 10 0RF Continued gabapentin 600 mg tablet 600 mg PO HS famotidine 40 mg tablet 40 mg PO BID hydrocodone-acetaminophen 10-325 mg tablet 1 tab PO Q6HP PRN (Reason: Moderate Pain (Scale Score 5-6)) omeprazole 40 mg capsule,delayed release(DR/EC) 40 mg PO BID spironolactone 25 mg tablet 25 mg PO DAILY diltiazem HCl 120 mg capsule,extended release 24 hr 120 mg PO DAILY gabapentin 300 mg capsule 300 mg PO BID potassium chloride 10 mEq tablet,ER particles/crystals 10 meq PO TID ranolazine 500 mg tablet extended release 12 hr 500 mg PO BID cyclobenzaprine 10 mg tablet 10 mg PO TIDP PRN (Reason: Muscle Spasm) furosemide 40 mg tablet 40 mg PO DAILY atorvastatin 80 mg tablet 80 mg PO DAILY clopidogrel 75 mg tablet 75 mg PO DAILY aspirin 81 mg Tablet,Delayed Release (Dr/Ec) 81 mg PO DAILY Problem Reconciliation Problems Reviewed?: Yes Patient Discharge Instructions Patient Instructions: Climate Temperature Troubles With Older Adults: What You Need to Know, DI for Kidney Failure, Acute Kidney Injury, DI for Urinary Tract Infection (UTI), Stop Light Heart Failure, Stop Light Infection Print Language: Portuguese Providers Primary Care Provider: Provider,Referral Admit Provider: Alexis Georges Attending Provider: Alexis Georges
[2024-10-23 12:00] VITALS: PULSE 90
--- NOTE | 2024-10-25 10:04 | SW/DCPLANNER ---
Phoned patient x2. Was not able to leave message. Patient's phone just rang. Lamont Garland
== END 2024-10-23 13:14 | disposition home or self-care (01) ==
LOC: ER 22:35 → 2ND 22:42
PROVIDERS: Nurse Practitioner Acute Care; Physician Assistant; Admitting Provider Student in an Organized Health Care Education/Training Program; Emergency Provider Emergency Medicine; Visit Provider Student in an Organized Health Care Education/Training Program
DX: T67.1XXA Heat syncope, initial encounter (principal); N17.9 Acute kidney failure, unspecified; N30.00 Acute cystitis without hematuria; B96.89 Other specified bacterial agents as the cause of diseases classified elsewhere; G93.41 Metabolic encephalopathy; R79.89 Other specified abnormal findings of blood chemistry; I11.0 Hypertensive heart disease with heart failure; I50.9 Heart failure, unspecified; G89.29 Other chronic pain; X30.XXXA Exposure to excessive natural heat, initial encounter; Y92.009 Unspecified place in unspecified non-institutional (private) residence as the place of occurrence of the external cause; Z79.82 Long term (current) use of aspirin; Z79.02 Long term (current) use of antithrombotics/antiplatelets; Z79.83 Long term (current) use of bisphosphonates; Z88.8 Allergy status to other drugs, medicaments and biological substances
CPT/HCPCS: 36415; 70450; 70496; 70498; 71046; 72125; 80048; 80053; 81001; 82550; 82803; 83605; 83735; 84436; 84443; 84484; 85025; 85610; 87040; 87086; 93005; 96361; 96365; 96366; G0378; J0696; J7030; Q9967